=== PATIENT | female | born 1990 | race Caucasian/White ===

== ENCOUNTER 2023-08-06 14:53 | Emergency (ER) | payer OTHER, SELFPAY ==
[2023-08-06 14:57] VITALS: BP 134/88
--- NOTE | 2023-08-06 16:08 | ED.GENMED ---
History of Present Illness
General
Chief Complaint: Eye Problems
Source: patient
Time Seen by Provider: 08/06/23 15:55
Travel History
Have you had any contact with someone who has COVID-19?: No
Do you have any symptoms of coronavirus? Fever > 100 degrees, chills, cough, shortness of breath, sore throat, loss of taste or smell, muscle aches, or headache?: No
History of Present Illness
History of Present Illness:
33-year-old female presenting the emergency department for evaluation of bilateral eye edema, injection, discharge and discomfort that began this morning upon awakening. Patient states that there was so much discharge she was unable to open her
eyes until she was able to clear the amount of discharge. She contacted her primary care provider who prescribed her polymyxin eyedrops but within about an hour of using the drops patient felt as if her symptoms worsened prompting her to come to
the ER for further evaluation. Patient states over the weekend she was out camping with her family which is a relatively normal activity for them and she cannot think of anything that may have gotten in her eye. She denies any fevers. Notes she
wears glasses but not contact lenses. Also of note, patient was recently treated for a sinus infection and completed a course of antibiotics last week.
Past History
Past History
ED Past Surgical History: and Gynecological
Social History
Tobacco: Non-smoker
Alcohol: Occasional
Drug: None
Personal:
Living: with family
Review of Systems
Review of Systems
All Other Systems: ROS reviewed and negative except as documented in HPI and ROS
Phy Exam
Physical Exam
Physical Exam:
GENERAL: Alert , in no apparent distress
EYE: conjunctiva moderately injected bilateral, there is edema to both upper and lower lids but this does not extend into the periorbital space. There is moderate greenish-yellow discharge from both medial canthi. Extraocular movements are intact
and without pain., Pupils 3 mm bilateral, PERRL
Fluorescein stain shows no uptake
Visual acuity unable to be done as patient did not have her glasses
Head: Normocephalic atraumatic
NECK: Supple, no lymphadenopathy
ENT: mmm. TMs clear bilateral
LUNGS: no acute respiratory distress
NEUROLOGICAL: Alert and oriented
SKIN: Warm and dry, skin intact.
MUSCULOSKELETAL: well perfused.
PSYCH: Normal and appropriate interaction.
Scores
Heart Failure Risk
Heart Failure Risk Score: Not Applicable
Heart Score for Chest Pain Patients
STEMI patient?: Not applicable
Withdrawal Assessment of Alcohol
Withdrawal Assessment Completed?: Not applicable
Course
Orders/Labs/Results
Orders:
Orders
08/06/23 16:08
Diphenhydramine [Benadryl] 25 mg PO NOW STA
08/06/23 16:09
Fluorescein Sodium [Ful-Coby] 1 mg .ROUTE .STK-MED ONE
Tetracaine HCl [Tetracaine 0.5% Ophthalmic Solution] 1 drop .ROUTE .STK-MED ONE
08/06/23 16:10
Visual Acuity- Treatment ONCE
Vital Signs
Initial and Last Documented VS:
Initial Vital Signs
Temp Pulse Resp BP Pulse Ox
98.1 F 101 20 134/88 100
08/06/23 14:57 08/06/23 14:57 08/06/23 14:57 08/06/23 14:57 08/06/23 14:57
Last Documented Vital Signs
Temp Pulse Resp BP Pulse Ox
98.1 F 101 20 134/88 100
08/06/23 14:57 08/06/23 14:57 08/06/23 14:57 08/06/23 14:57 08/06/23 14:57
MDM/Problems Addressed
Differential Diagnosis Includes:
Bacterial versus viral versus allergic conjunctivitis, iritis, foreign body, corneal abrasion, I do not have concern for orbital/periorbital cellulitis
MDM/Problems Addressed:
33-year-old female presenting the emergency department for evaluation of bilateral eye injection/discharge that started this morning. Symptoms seem to be most consistent with conjunctivitis. Initially I felt symptoms were more likely related to an
allergic conjunctivitis but patient does have a moderate amount of discharge which would lend more to a viral versus bacterial etiology. Advised patient continue her polymyxin that was prescribed by primary care provider. Advised on proper care
for infection and cleaning. Patient is stable for charged home and outpatient management with primary care provider
*Pulse Oximetry
Patient hypoxic: no
*Critical Care Note
Total Time (30-74mins, 75-104mins- exclusive of procedures): Not Applicable
ED Attending Note
-
Portions of this chart may have been created with voice recognition software.� Occasional wrong word or��sound alike� substitutions may have occurred due to the inherent limitations of voice recognition software.
Discharge Plan
Departure
Patient Disposition: Home (Routine Discharge)
Date of Disposition: 08/06/23
Time of Disposition: 16:08
Patient with high blood pressure during this ER visit?: No
Discharge Problem:
Acute conjunctivitis of both eyes
Instructions: Conjunctivitis (Tariqeye) (DC)
Interventions
Interventions:
*Risk Screen - Suicide Last Done: 08/06/23 16:36
*General Assessment Last Done: 08/06/23 16:36
*Neglect/Abuse Screening Last Done: 08/06/23 16:36
ED- Fall Risk Assessment Last Done: 08/06/23 16:36
*ED COVID-19 Vaccine History Last Done: 08/06/23 16:36
*Nursing Disposition Last Done: 08/06/23 16:36
Discharge Date and Time
Print Language: [place]
[2023-08-06] MEDS: BENADRYL 25 MG PO (16:21)
== END 2023-08-06 16:41 | disposition home or self-care (01) ==
LOC: EMR 14:53
PROVIDERS: EMERGENCY PHYSICIAN Emergency Medicine; FAMILY PHYSICIAN Family Medicine
DX: H10.33 Unspecified acute conjunctivitis, bilateral (principal)
CPT/HCPCS: 99283